=== PATIENT | female | born 1945 | race Caucasian/White ===

== ENCOUNTER 2017-07-23 12:22 | Outpatient (CLI) | payer OTHER ==
--- NOTE | 2017-07-23 15:02 | CT ---
POST ARTHROGRAM CT OF RIGHT SHOULDER PERFORMED WITH CONTRAST: HISTORY: Right shoulder pain. FINDINGS: Contrast injection performed by Dr. Armenta with good opacification of the joint space. The bulk of both the supra- and infraspinatus muscles appears fairly well preserved. I see no eviden ce of a rotator cuff tear other than some minimal undersurface irregularity to the supraspinatus. I cannot exclude this is a low-grade tear. Subscapularis muscle and tendon are also felt to be intact and the biceps tendon is in a normal position within the bicipital groove. There are marked arthritic changes of the glenohumeral joint space. There is subchondral bony cystic change of the glenoid. IMPRESSION: 1. No signs of rotator cuff tear. 2. Marked arthritic changes of the glenohumeral joint. POS: [facility]
--- NOTE | 2017-07-23 17:19 | RAD ---
FLUOROSCOPIC GUIDED RIGHT SHOULDER ARTHROGRAM 07/23/17 HISTORY: Right shoulder pain. FLUOROSCOPY: Total fluoroscopy time is 1 minute with total dose of 29.2 uGy*m2. TECHNIQUE: After informed consent is obtained, patient was placed on the fluoroscopy table in the supine positi on. The right shoulder was placed in external rotation. An areas overlying the superolateral aspect o f the right glenohumeral joint was marked and then meticulously prepped and draped in the usual steri le fashion. Skin and subcutaneous tissues were infiltrated with buffered 1% lidocaine for local anesthesia. A 22 gauge spinal needle was advanced utilizing fluoroscopic guidance. Inner stylet was removed, and contr ast was injected demonstrating free flow of contrast away from the needle. As the result, a total vol ume of 12 mL of a mixture consisting of Isovue 300, normal saline, 1% lidocaine, and epinephrine were instilled into the right glenohumeral joint. The needle was removed, hemostasis was achieved with di rect pressure. Patient tolerated the procedure well without immediate complication. Patient was trans ported to CT scan for additional imaging post arthrogram. FINDINGS: A right shoulder arthrogram was successfully performed. Please see CT arthrogram for further details. Three views of the right shoulder were obtained demonstrating right glenohumeral osteoarthropathy wit h prominent osteophyte at the inferior aspect of the right humeral head with subchondral cystic martinez es in the humeral head and glenoid. There is mild right acromioclavicular joint osteoarthritis. No fr acture or dislocation is present. Vascular calcifications seen in the thoracic aorta and surgical cli ps overlie the right neck. IMPRESSION: 1. Right glenohumeral osteoarthropathy. 2. Technically successful right shoulder arthrogram. POS: [facility]
== END 2017-07-23 12:23 | disposition home or self-care (01) ==
LOC: RAD 12:22
PROVIDERS: ATTEND Orthopaedic Surgery
DX: M25.511 Pain in right shoulder (principal); M19.011 Primary osteoarthritis, right shoulder
CPT/HCPCS: 23350

== ENCOUNTER 2018-03-23 13:12 | Outpatient (CLI) | payer MEDICARE ==
--- NOTE | 2018-03-23 14:16 | RAD ---
FOUR VIEWS LUMBOSACRAL SPINE: Comparison: None. History: Spondylosis without myelopathy or radiculopathy. FINDINGS: AP, lateral, flexion and extension views of the lumbosacral spine were performed. The patient is status post posterior fusion of L3 through L5 with bilateral pedicle screws. There is grade II spondylolisthesis of L4 on L5. Alignment is unchanged with flexion and extension. No perihar dware lucency is identified. IMPRESSION: 1. Spondylolisthesis of L4 on L5 with unchanged alignment with bending. POS: [facility]
== END 2018-03-23 13:13 | disposition home or self-care (01) ==
LOC: RAD 13:12
PROVIDERS: ATTEND Nurse Practitioner Family
DX: M47.816 Spondylosis without myelopathy or radiculopathy, lumbar region (principal); M96.1 Postlaminectomy syndrome, not elsewhere classified; M43.16 Spondylolisthesis, lumbar region
CPT/HCPCS: 72100